=== PATIENT | male | born 1945 | race Caucasian/White ===

== ENCOUNTER 2020-05-04 05:29 | Day surgery (SDC) | payer MEDICARE ==
[2020-05-04] MEDS ORDERED: Dextrose 5%-Lactated Ringers 1,000 ML IV SCH (06:00)
[2020-05-04] MEDS ORDERED: Lidocaine 4% Top Soln 50 ML Bottle ONE (06:48)
[2020-05-04] MEDS ORDERED: Lidocaine 2% Viscous Solution 15 ML Cup ONE (06:48)
[2020-05-04] MEDS ORDERED: fentaNYL 100 MCG/2 ML SDV ONE (07:20)
[2020-05-04] MEDS ORDERED: Propofol 200 MG/20 ML SDV ONE (07:20)
[2020-05-04] MEDS ORDERED: Lidocaine 4% Top Soln LTA 4 ML Syringe Kit ONE (07:22)
--- NOTE | 2020-05-08 11:50 | OR ---
DATE OF PROCEDURE: 05/04/2020 SURGEON: Arain Longoria MD PREOPERATIVE DIAGNOSES: 1. Persistent infiltrate and soft tissue thickening centered around the superior segment of right lower lobe. 2. Enlarged left mainstem bronchus lymph node. POSTOPERATIVE DIAGNOSES: 1. Persistent infiltrate and soft tissue thickening centered around the superior segment of right lower lobe. 2. Enlarged left mainstem bronchus lymph node. OPERATIVE PROCEDURES: Flexible bronchoscopy with: 1. Generalized tracheobronchial washings (23106). 2. Brushings involving right lower lobe (17228). 3. Bronchoalveolar lavage into superior segment of right lower lobe (60454). 4. Transbronchial needle aspiration biopsies superior segment of bronchus, right lower lobe. 5. Transbronchial needle aspiration biopsies of as stated enlarged left mainstem bronchus lymph node ([id number]). ANESTHESIA: Topical plus IV sedation. INDICATION FOR PROCEDURE: A 74-year-old presenting with some persistent pulmonary symptoms, and after initial treatment of this with some antibiotics and persistence of symptoms, the patient underwent a CT scan per personal physician, Dr. Lema. This showed some generalized thickening around the right hilum, specifically most concentrated around the superior segmental bronchus of right lower lobe. There was also noted to be enlarged lymph node in the left mainstem bronchus area roughly 3 cm from the juana on the inferior aspect of the left mainstem bronchus at that level. Plan is to proceed with flexible bronchoscopy with washings, brushings, BAL, and transbronchial needle aspiration biopsies, and if visible tumor is seen, some mucosal level biopsies will be obtained. Potential risks of the procedure including bleeding, infection, aspiration of gastric contents, possible false negative evaluation were all reviewed, and the patient wishes to proceed. DETAILS OF PROCEDURE: The patient was taken to the operating room and placed in a semi- sitting position. IV sedation was administered, after which nasal passages, hypopharynx, and larynx were anesthetized with topical lidocaine solution, and translaryngeal injection of lidocaine was then placed for anesthesia. Flexible bronchoscope was then passed through the right side of the nose and into the hypopharynx and larynx. Cord motion was noted to be symmetrical. As one passed into the trachea, there was no distortion of the tracheal or carinal course. The left tracheobronchial tree was entirely normal. On the right side, there was some subtle narrowing of the origin of the superior segment of bronchus of the right lower lobe. Apart from some scattered mucoid secretions, no abnormalities were noted in the right tracheobronchial tree. At this point, the tracheobronchial washings were then diffusely obtained, and following this, brushings were then obtained from the superior segment of bronchus, as well as the basilar segment of the bronchi. Following this bronchoalveolar lavage with injection of 200 mL of saline into the superior segment of right lower lobe was undertaken with aspiration of that fluid and sent for cytologic evaluation. Over the medial aspect of the superior segment of bronchus, a transbronchial needle aspiration biopsy was obtained. Three separate sites were obtained in this vicinity and all sent for evaluation in Saccomanno solution. Following this, the lymph node, which was mapped out preoperatively with CT scanning 2 to 3 cm distal to the juana and on the inferior aspect of the left mainstem bronchus, was evaluated by means of transbronchial needle aspiration biopsy as well and this specimen sent in Saccomanno solution as well. Procedure was then concluded. Minimal bleeding was noted. The patient tolerated the procedure well. We will contact the patient and his next week when the pathology is available. If this exam is negative, one may wish to try to treat this with some additional course of antibiotics versus a followup additional bronchoscopy perhaps with [facility] in [place], which would have the availability of some intraoperative ultrasound guidance. Arian Longoria MD /[id number]
== END 2020-05-04 10:17 | disposition home or self-care (01) ==
LOC: JP.SDS 05:29
PROVIDERS: ATTEND Surgery
DX: C34.31 Malignant neoplasm of lower lobe, right bronchus or lung (principal); R59.0 Localized enlarged lymph nodes
CPT/HCPCS: 31623; 31624; 31629; 31633; 87015; 87070; 87077; 87102; 87116; 87205; 87206; 87220; A9270; J2704; J3010; J7121

== ENCOUNTER 2020-05-22 01:58 | Emergency (ER) | payer MEDICARE ==
[2020-05-22] MEDS ORDERED: Labetalol 20 MG/4 ML Syringe ONE (02:00)
[2020-05-22] MEDS ORDERED: Morphine 4 MG/ML Syringe ONE (02:01)
[2020-05-22] MEDS ORDERED: Morphine 4 MG/ML Syringe IVPUSH ONE (02:05)
[2020-05-22] MEDS ORDERED: Labetalol 100 MG/20 ML MDV IVPUSH ONE (02:05)
[2020-05-22] MEDS ORDERED: Sodium Chloride 0.9% 1,000 ML IV ONE (02:16)
--- NOTE | 2020-05-22 02:29 | EDM.PDOC ---
ED HPI GENERAL MEDICAL PROBLEM - General Chief Complaint: General Stated Complaint: [facility] Time Seen by Provider: 05/22/20 01:58 Source of Information: Reports: Patient, EMS, Family History Limitations: Reports: Physical Impairment (Patient is in significant physical distress limiting his ability to communicate) - History of Present Illness INITIAL COMMENTS - FREE TEXT/NARRATIVE: 74-year-old male with known metastatic lung cancer and AAA, is scheduled to have a procedure at [facility] tomorrow to repair his abdominal aneurysm. Tonight he became short of breath, developed back and abdominal pain and called the ambulance. On arrival they found a patient in fairly significant distress, pale and uncomfortable. Initial blood pressure was 161/80, in route to the hospital it mushtaq to 220/120 at its high. IV access was unobtainable in route. On arrival the patient was conscious and communicating, complained of shortness of breath and significant back and abdominal pain. O2 saturations were 91% on 6 L of nasal cannula oxygen, blood pressure was 167/112 and pulse was 99. Onset: Sudden (Symptoms started fairly suddenly about an hour ago.) Associated Symptoms: Reports: Chest Pain, Malaise, Shortness of Breath, Other (Back and abdominal pain) Abdomen Pain Score (Numeric/FACES): 10 - Related Data Allergies Allergy/AdvReac Type Severity Reaction Status Date / Time No Known Allergies Allergy Verified 05/22/20 02:03 Home Meds: Home Meds Ibuprofen 400 mg PO BID PRN 05/04/20 [History] Acetaminophen [Acetaminophen Extra Strength] 500 mg PO Q6H PRN 05/22/20 [History] Past Medical History HEENT History: Reports: Cataract, Hard of Hearing Cardiovascular History: Reports: Other (See Below) Other Cardiovascular History: AAA Respiratory History: Reports: Other (See Below) Other Respiratory History: right lung mass Musculoskeletal History: Reports: Other (See Below) Other Musculoskeletal History: right elbow fracture as child Oncologic (Cancer) History: Reports: Lung - Past Surgical History HEENT Surgical History: Reports: Cataract Surgery Cardiovascular Surgical History: Reports: None Respiratory Surgical History: Reports: Lung Biopsies Social & Family History - Family History Family Medical History: Noncontributory - Tobacco Use Smoking Status *Q: Former Smoker Used Tobacco, but Quit: Yes Month/Year Tobacco Last Used: 2005 - Caffeine Use Caffeine Use: Reports: Coffee - Recreational Drug Use Recreational Drug Use: No ED ROS GENERAL - Review of Systems Review Of Systems: See Below Constitutional: Denies: Fever, Chills HEENT: Denies: Throat Pain Respiratory: Reports: Shortness of Breath. Denies: Cough Cardiovascular: Reports: Chest Pain GI/Abdominal: Reports: Abdominal Pain. Denies: Vomiting Musculoskeletal: Reports: Back Pain Skin: Reports: Pallor, Diaphoresis Neurological: Denies: Headache ED EXAM, GENERAL - Physical Exam Exam: See Below Exam Limited By: Physical Impairment (Some difficulty answering questions due to intense pain) General Appearance: Alert, Severe Distress Eye Exam: Bilateral Eye: Normal Inspection (Adequate hydration, no jaundice) Head: Atraumatic Respiratory/Chest: No Respiratory Distress, Other (Lungs are clear anteriorly). No: Decreased Breath Sounds Cardiovascular: Regular Rate, Rhythm GI/Abdominal: Tender (Diffusely tender to palpation, vigorous deep palpation was not performed) Extremities: No: Pedal Edema Neurological: Alert, Slow to Respond Psychiatric: Anxious Skin Exam: Diaphoretic, Pallor Course - Vital Signs Last Recorded V/S: Last Vital Signs Temp 96.6 F L 05/22/20 02:23 Pulse 66 05/22/20 02:23 Resp 19 05/22/20 02:23 BP 68/42 L 05/22/20 02:23 Pulse Ox 93 L 05/22/20 02:23 - Orders/Labs/Meds Labs: Laboratory Tests 05/22/20 05/22/20 Range/Units 02:05 02:05 WBC 16.5 H (4.5-11.0) K/uL RBC 3.59 L (4.30-5.90) M/uL Hgb 11.3 L (12.0-15.0) g/dL Hct 35.0 L (40.0-54.0) % MCV 98 (80-98) fL MCH 32 H (27-31) pg MCHC 32 (32-36) % Plt Count 337 (150-400) K/uL Neut % (Auto) 50 (36-66) % Lymph % (Auto) 35 (24-44) % Arroyo % (Auto) 10 H (2-6) % Eos % (Auto) 5 H (2-4) % Baso % (Auto) 1 (0-1) % Sodium 143 (140-148) mmol/L Potassium 4.0 (3.6-5.2) mmol/L Chloride 108 (100-108) mmol/L Carbon Dioxide 17 L (21-32) mmol/L Anion Gap 22.0 H (5.0-14.0) mmol/L BUN 25 H (7-18) mg/dL Creatinine 1.6 H (0.8-1.3) mg/dL Est Cr Clr Drug Dosing 39.28 mL/min Estimated GFR (MDRD) 42 L (>60) Glucose 330 H (74-106) mg/dL Calcium 8.0 L (8.5-10.1) mg/dL Total Bilirubin 0.4 (0.2-1.0) mg/dL AST 30 (15-37) U/L ALT 27 (12-78) U/L Alkaline Phosphatase 95 (46-116) U/L Total Protein 5.5 L (6.4-8.2) g/dL Albumin 2.5 L (3.4-5.0) g/dL Globulin 3.0 (2.3-3.5) g/dL Albumin/Globulin Ratio 0.8 L (1.2-2.2) Meds: Medications Discontinued Medications Generic Name Dose Route Start Last Admin Trade Name Freq PRN Reason Stop Dose Admin Sodium Chloride 1,000 mls @ 999 mls/hr 05/22/20 02:16 05/22/20 02:16 Normal Saline IV 05/22/20 03:16 999 mls/hr .BOLUS ONE Administration Labetalol HCl 20 mg 05/22/20 02:05 05/22/20 02:07 Normodyne IVPUSH 05/22/20 02:06 20 mg ONETIME ONE Administration Protocol Morphine Sulfate 4 mg 05/22/20 02:05 05/22/20 02:02 Morphine IVPUSH 05/22/20 02:06 4 mg ONETIME ONE Administration - Re-Assessments/Exams Free Text/Narrative Re-Assessment/Exam: 05/22/20 02:31 Bedside fast ultrasound was performed and showed a fairly large aneurysm with possible dissection, no free fluid in the abdomen. 2 IVs were started, normal saline bolus of 1000 cc was started, and the patient was given 20 mg of IV labetalol and 4 mg of IV morphine. EKG done by EMS was reviewed. CBC and CMP were drawn and urgent consultation and transfer was arranged through [place]. Dr. Acevedo accepted the patient for transfer at 02:25 after discussing his condition with vascular surgery. Blood pressure dropped significantly after the labetalol to 70/40, pain was also significantly improved. A second ultrasound was done just prior to discharge to [place] and there was no change. Hemoglobin is 13.0. Critical care time was 35 minutes. Departure - Departure Time of Disposition: 02:28 Disposition: DC/Tfer to Other 70 Clinical Impression: Aortic aneurysm Qualifiers: Aortic location: abdominal aorta Presence of rupture: without rupture Qualified Code(s): I71.4 - Abdominal aortic aneurysm, without rupture - Discharge Information Referrals: PCP,None [Ordering Only Provider] - Forms: ED Department Discharge Additional Instructions: Patient was transferred urgently by air to 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 Critical Care Note - Critical Care Note Total Time (mins): 35 Sepsis Event Note (ED) - Evaluation Sepsis Screening Result: No Definite Risk - Focused Exam Vital Signs: Vital Signs Temp Pulse Resp BP Pulse Ox 05/22/20 02:23 96.6 F L 66 19 68/42 L 93 L 05/22/20 02:13 95.6 F L 68 26 H 70/40 L 93 L 05/22/20 02:01 99 38 H 156/112 H 91 L
== END 2020-05-22 02:28 | disposition other institution (70) ==
LOC: JP.ED 01:58
DX: I71.4 Abdominal aortic aneurysm, without rupture (principal); Z79.899 Other long term (current) drug therapy; Z87.891 Personal history of nicotine dependence
CPT/HCPCS: 36415; 80053; 85025; 96374; 96375; 99285; J2270; J3490; J7030

== ENCOUNTER 2020-06-13 06:45 | Day surgery (SDC) | payer MEDICARE ==
[~2020-06-13 06:45] MED LIST: Bupivacaine 0.5% 50 ML MDV ONE; Lidocaine 1% with EPINEPHrine 1:100,000 50 ML MDV ONE
[2020-06-13] MEDS ORDERED: fentaNYL 250 MCG/5 ML SDV ONE (07:18)
[2020-06-13] MEDS ORDERED: Ondansetron 4 MG/2 ML SDV ONE (07:19)
[2020-06-13] MEDS ORDERED: Dexamethasone 4 MG/ML SDV ONE (07:19)
[2020-06-13] MEDS ORDERED: Neostigmine Methylsulfate 1 MG/ML 5 ML Syringe ONE (07:19)
[2020-06-13] MEDS ORDERED: Glycopyrrolate 0.2 MG/ML 5 ML MDV ONE (07:19)
[2020-06-13] MEDS ORDERED: Propofol 200 MG/20 ML SDV ONE (07:19)
[2020-06-13] MEDS ORDERED: Rocuronium 50 MG/5 ML Vial ONE (07:19)
[2020-06-13] MEDS ORDERED: Succinylcholine 200 MG/10 ML MDV ONE (07:19)
[2020-06-13] MEDS ORDERED: Dextrose 5%-Lactated Ringers 1,000 ML IV SCH (07:30)
[2020-06-13] MEDS ORDERED: ePHEDrine 50 MG/ML SDV ONE (08:00)
[2020-06-13] MEDS ORDERED: ceFAZolin 2 GM in Premix Bag 1 BAG IV ONE (09:30)
[2020-06-13] MEDS ORDERED: Sodium Chloride 0.9% 10 ML ONE (10:59)
--- NOTE | 2020-06-14 15:18 | OR ---
DATE OF PROCEDURE: 06/13/2020 SURGEON: Arian Longoria MD PREOPERATIVE DIAGNOSES: 1. Non-small cell lung carcinoma with multiple metastatic lesions. 2. Desire to obtain more tissue for further characterization of primary tumor. OPERATIVE PROCEDURE: Right supraclavicular lymph node biopsy including excision of scalene fat pad (23464). ANESTHESIA: General. INDICATION FOR PROCEDURE: This is a 74-year-old elderly frail male presenting with a non- small cell lung carcinoma involving the superior segment of the right lower lobe with multiple metastatic sites both within the mediastinum and many bony sites. He is also noted on PET scan to have an uptake in the right supraclavicular lymph node. Plan is to proceed, per Medical Oncology's request, with a right supraclavicular lymph node biopsy to obtain more substantial tissue for further workup on the tumor. The patient is quite frail at this point. He just recently was discharged after ruptured abdominal aortic aneurysm which was 8.5 cm prior to rupture and required an open approach for repair. He has recovered from that reasonably well, but remains fairly frail. Plan is to proceed with a supraclavicular lymph node biopsy. He is, in all likelihood, having at this point still some degree of poor gastric emptying following the procedure that he recently had, and we will proceed with general anesthetic so as to avoid problems with aspiration of gastric contents. Potential risks of the procedure were reviewed including bleeding, infection, injury to underlying nerves and/or blood vessels, possibility that the biopsy may not be efficacious in terms of getting adequate tissue were reviewed, and the patient wishes to proceed. DESCRIPTION OF PROCEDURE: The patient was taken to the operating room. After general endotracheal anesthesia was induced, the upper chest and neck areas were prepped and draped. There was a vaguely palpable fullness just lateral to the internal jugular vein, this was seen on ultrasound as well, and a transversely oriented supraclavicular incision was made and carried down through the skin and subcutaneous tissue and through the muscular layers. This was carried down into the area of the scalene fat pad, which was excised. This did not contain much in the way of lymphatic tissue grossly. There was a small, roughly 8 to 10 cm lymph node, which was quite firm, which was located posterior, slightly lateral to the internal jugular vein at the level of the clavicular head, which was excised. This did appear to be probably pathologic, but by no means certainly palpable, and ultrasound exploration of the remainder area showed only one additional firm node. This, however, was quite lateral and mixed with the subclavian vein and artery as well as brachial plexus, and removal of this node will require a formal dissection in the areas as one might proceed with a gastric outlet syndrome type case, which seemed to be at this point inappropriate for someone in his condition. Given this, the area was irrigated and the incision closed with some 3-0 and 4-0 Vicryl stitch deep and a 5-0 Vicryl subcuticular stitch and a dressing applied. The plan at this point will be to wait to see if there is a tumor identified in the node removed today. If this is nondiagnostic, we will ask Medical Oncology to review the overall case in terms of potentially obtaining biopsies from other locations. Of note, he had an MRI of the head today looking for any brain metastases. 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 This was reviewed with the patient and family as well. The plan will be to have the patient follow up with Dr. Ciaran Singh of [facility] in [place] on Friday. We will try to contact Dr. Singh prior to that to review the case, and at that point, we probably will have at least some idea whether or not some malignancy is seen in the lymph nodes that were removed today and whether or not, if that is not the case, what additional diagnostic studies would be needed. Arian Longoria MD /[id number]
== END 2020-06-13 14:18 | disposition home or self-care (01) ==
LOC: JP.SDS 06:45
PROVIDERS: ATTEND Surgery
DX: C34.31 Malignant neoplasm of lower lobe, right bronchus or lung (principal); C78.1 Secondary malignant neoplasm of mediastinum; C79.51 Secondary malignant neoplasm of bone; C77.0 Secondary and unspecified malignant neoplasm of lymph nodes of head, face and neck; I71.4 Abdominal aortic aneurysm, without rupture; N40.0 Benign prostatic hyperplasia without lower urinary tract symptoms; G89.3 Neoplasm related pain (acute) (chronic); Z87.891 Personal history of nicotine dependence; Z98.890 Other specified postprocedural states
CPT/HCPCS: 38520; 76998; J0690; J1100; J2405; J2704; J2710; J3010; J3490; J7121; J0330